=== PATIENT | female | born 1945 | race Caucasian/White ===

== ENCOUNTER 2017-04-23 11:16 | Emergency (ER) | payer MEDICARE, BC ==
[~2017-04-23] VITALS: Ht 160 cm; Wt 74.8 kg
--- NOTE | ~2017-04-23 | CR72 ---
[facility] A Service of [facility] & [facility] RADIOLOGY TEXT RESULTS PATIENT: HARJINDER SIMON LOCATION: [facility] : 43 UNIT #: [id number] AGE: [address]: Mayito Watlon MD SEX: F ORDER DR: [id number] [facility] [address] [place], [place] [address] [id number] E MR#: [id number] Acc #: [id number] NAME: HARJINDER SIMON : 1945 SEX: F STUDY DATE/TIME: 04/23/2017 11:54 UNIT: [facility] ROOM: STUDY DESCRIPTION: CR Chest Single View Portable Attending Physician: Mayito Walton M.D. Ordering Physician: Mayito Walton M.D. Primary Care Physician: Yasir Bernard M.D. MEDICAL IMAGING REPORT This report is preliminary unless electronic signature is present EXAM AP portable chest. Date: 04/23/2017. HISTORY 71-year-old female with shortness breath and weakness for 1 day. COMPARISON AP portable chest 01/30/2015. FINDINGS There is minimal scarring or atelectasis in the left base. No dense lung consolidations are seen. Normal heart size. No pleural effusion or pneumothorax. No acute osseous abnormality. IMPRESSION Very mild left basilar atelectasis or scarring. No consolidation. Dictated by... Cesilia Arellano M.D. THIS IS AN ELECTRONICALLY VERIFIED REPORT Cesilia Arellano M.D. at 04/24/2017 8:31 AM LLH/aript TD: 04/23/2017 16:47 JOB #: [id number] MEDICAL IMAGING REPORT Page 1 of 1 COPY
--- NOTE | ~2017-04-23 | CT71 ---
[facility] A Service of [facility] & [facility] RADIOLOGY TEXT RESULTS PATIENT: HARJINDER SIMON LOCATION: [facility] : 43 UNIT #: [id number] AGE: [address]: Mayito Walton MD SEX: F ORDER DR: [id number] [facility] [address] [place], [place] [address] [id number] E MR#: [id number] Acc #: [id number] NAME: HARJINDER SIMON : 1945 SEX: F STUDY DATE/TIME: 04/23/2017 13:06 UNIT: [facility] ROOM: STUDY DESCRIPTION: CT Head Wo Contrast Attending Physician: Mayito Walton M.D. Ordering Physician: Mayito Walton M.D. Primary Care Physician: Yasir Bernard M.D. MEDICAL IMAGING REPORT This report is preliminary unless electronic signature is present EXAM CT head, 04/23/2017 HISTORY Dizziness, weakness since [address] head performed skull base through vertex without intravenous contrast. Comparison 08/01/2016. This CT exam was performed with one or more of the following radiation dose reduction techniques: Automatic exposure control, adjustment of mA and/or kV according to patient size, and iterative reconstruction. The brainstem is unremarkable. The cerebellum and cerebral hemispheres show overall preservation of chavez matter-white matter differentiation. No hemorrhage. There is no clear indication of acute cortical ischemia. Extensive areas of subcortical and periventricular and deep white matter tract hypodensity not significantly changed from prior study and most in keeping with sequelae of chronic small vessel ischemic change. The midline structures are nondisplaced. No acute basal ganglia abnormality. The ventricles, cisterns and sulci are mildly enlarged, consistent with mild generalized atrophy. There are cavernous carotid arterial calcifications. No intra- or extraaxial mass effect or abnormal intracranial fluid collection. Visualized intraorbital soft tissues are unremarkable. Mucosal thickening in the bilateral sphenoid sinuses. Probable small air-fluid level in the right sphenoid sinus. Mucosal thickening and air-fluid level in the left maxillary sinus. Findings suggest combination of chronic and acute sinusitis in these locations. No fracture. IMPRESSION 1. No acute abnormalities seen in the brain. If the patient has ongoing neurologic symptoms, consider followup imaging. Chronic STS. [facility] A Service of [facility] & [facility] RADIOLOGY TEXT RESULTS PATIENT: HARJINDER SIMON LOCATION: [facility] : 43 UNIT #: [id number] AGE: [address]: Mayito Walton MD SEX: F ORDER DR: changes include: Mild generalized atrophy, periventricular, subcortical and deep white matter tract probable sequelae of chronic microvascular ischemia, vascular calcifications. 2. Mucosal thickening and air-fluid levels suggested in right sphenoid and left maxillary sinuses suggesting combination of acute and chronic sinusitis at these locations. Dictated by... Mauricio Kimball M.D. THIS IS AN ELECTRONICALLY VERIFIED REPORT Mauricio Kimball M.D. at 04/24/2017 10:44 PM Sobeida TD: 04/23/2017 20:04 JOB #: [id number] MEDICAL IMAGING REPORT Page 1 of 1 COPY
--- NOTE | ~2017-04-23 | EKG ---
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
[~2017-04-23 11:16] MED LIST: APAP325 MG PO; CLOPIDOGREL75 MG PO; COLESTID PO; CYTOMEL5 MCG PO; DULOXETINE HCL60 MG PO; FLAGYL PO; FOSAMAX70 MG PO; GABAPENTIN300 MG PO; HYDRALAZINE HCL25 MG PO; HYDRALAZINE HCL50 MG PO; LABETALOL HCL200 MG PO; LIOTHYRONINE S50 MCG PO; LIOTHYRONINE SO5 MC1 PO; LIOTHYRONINE SO5 MCG PO; LIPITOR40 MG PO; NEURONTIN600 MG PO; OCEAN45 ML; PRINCIPEN500 M1 PO; PROTONIX PO; QUDEXY XR100 MG PO; REQUIP0.25 MG PO; REQUIP4 MG PO; TOPROL XL 50 MG50 MG PO; TRAMADOL HCL50 M1 PO; VITAMIN D1000 UNI1 PO; ZYLOPRIM100 MG PO
[2017-04-23 12:01] LABS: BASOPHIL# 0.1 X10e3 (0-0.3); BASOPHIL% 0.4 % (0-2.5); EOSINOPHIL# 0.2 X10e3 (0-0.7); EOSINOPHIL% 1.4 % (0.0-7.0); HEMATOCRIT 41.5 % (35.0-45.0); HEMOGLOBIN 13.5 gm/dL (12.0-16.0); LYMPHOCYTE# 3.3 X10e3 (1.0-3.5); LYMPHOCYTE% 29.2 % (17.0-45.0); MEAN CELL VOLUME 94.6 FL (83-96); MEAN CORPUSCULAR HEMOGLOBIN 30.9 PG (28-34); MEAN CORPUSCULAR HGB CONC 32.6 g/dL (30-36); MONOCYTE# 0.7 X10e3 (0-1.0); NEUTROPHIL# 7.2 X10e3 (1.5-7.1); PLATELET COUNT 273 X10e3 (140-420); RED BLOOD COUNT 4.39 X10e (3.90-5.30); RED CELL DISTRIBUTION WIDTH 13.7 % (11.0-15.5); WHITE BLOOD COUNT 11.5 X10e3 (4.0-10.5)
[2017-04-23 12:03] LABS: DIFF IND NO
[2017-04-23 12:12] LABS: POC - CKMB 2.7 ng/mL (0.0-7.9); POC - TROPONIN <0.05 ng/mL (<=0.05)
[2017-04-23 12:35] LABS: BILIRUBIN, DIRECT 0.1 mg/dL (0.0-0.2); BILIRUBIN,INDIRECT 0.8 mg/dL (0.0-0.9); BILIRUBIN,TOTAL 0.9 mg/dL (0.2-2.0); BUN/CREATININE RATIO 15.62; CALCIUM SERUM 9.3 mg/dL (8.4-10.2); CREATININE SERUM 1.6 mg/dL (0.6-1.4); GLOM FILT RATE Estimated 31.6 mL/min (>60); PROTEIN TOTAL SERUM 7.6 g/dL (6.0-8.3)
[2017-04-23 14:12] LABS: URINE SOURCE CLEAN CATCH
[2017-04-23 14:17] LABS: URINE APPEARANCE CLEAR; URINE BILIRUBIN NEG (NEG); URINE BLOOD TRACE (NEG); URINE COLOR YELLOW; URINE GLUCOSE NEG (NEG); URINE KETONE NEG (NEG); URINE LEUKOCYTE ESTERASE 1+ (NEG); URINE NITRATE NEG (NEG); URINE PROTEIN NEG (NEG); URINE SPECIFIC GRAVITY 1.013 (1.003-1.035); URINE UROBILINOGEN 0.2 MG/DL (NEG)
[2017-04-23 14:19] LABS: CULTURE INDICATED? YES; U HYALINE CASTS AUWI 0-2 /[LPF]; URINE BACTERIA AUWI 4+ (NEGATIVE); URINE SQUAMOUS EPITHELIAL CELL NONE SEEN /[HPF]
== END 2017-04-23 15:20 | disposition home or self-care (01) ==
LOC: CED 11:16
PROVIDERS: Emergency Medicine
DX: N30.00 Acute cystitis without hematuria (principal); R42 Dizziness and giddiness; R53.1 Weakness; R53.83 Other fatigue; E87.6 Hypokalemia; I12.9 Hypertensive chronic kidney disease with stage 1 through stage 4 chronic kidney disease, or unspecified chronic kidney disease; N18.9 Chronic kidney disease, unspecified; E03.9 Hypothyroidism, unspecified; X58.XXXA Exposure to other specified factors, initial encounter
CPT/HCPCS: 36415; 51701; 70450; 71010; 80048; 80076; 81003; 82553; 82947; 84443; 84484; 85025; 87086; 87186; 93005; 96360; 99285

== ENCOUNTER → 2017-05-25 | Outpatient (CLI) | payer MEDICARE ==
--- NOTE | ~2017-05-25 | MR113 ---
[facility] A Service of [facility] & [facility] RADIOLOGY TEXT RESULTS PATIENT: RENETTA SIMON LOCATION: [facility] : 41 UNIT #: [id number] AGE: [address]: Yasir Bernard MD SEX: F ORDER DR: [id number] [facility] [address] [place], [place] [address] [id number] O MR#: [id number] Acc #: [id number] NAME: RENETTA SIMON : 1945 SEX: F STUDY DATE/TIME: 05/25/2017 7:16 UNIT: [facility] ROOM: STUDY DESCRIPTION: MR Lumbar Wo Contrast Attending Physician: Yasir Bernard M.D. Referring Physician: Yasir Bernard M.D. Ordering Physician: Yasir Bernard M.D. Primary Care Physician: Yasir Bernard M.D. MRI CENTER REPORT This report is preliminary unless electronic signature is present. EXAM MRI of the lumbar spine without contrast dated 05/25/2017. COMPARISON None. HISTORY Low back pain and bilateral leg pain for a year. Pain extends all the way down to the feet. It has been worsening for several months. FINDINGS Multisequence, multiplanar imaging of the lumbar spine was obtained without contrast. 5 mm retrolisthesis of L5 is seen with respect to L4. There are no pars defects. Fatty signal 1.1-cm lesion is noted within L4 vertebral body, probably a nonaggressive benign lesion like hemangioma. Fatty marrow conversion is noted at multiple levels. Degenerative disc disease is noted throughout the visualized thoracolumbar spine. Conus terminates at T12-L1. Signal of conus and cauda equina are within normal limits. Pre- and paravertebral soft tissues do not demonstrate any significant abnormality. Increased T2 signal lesion is noted within the lateral aspect of the mid-right kidney measuring 2.8 x 2.3 cm. It was also noted in the CT abdomen from 10/30/2014 and is probably a simple cyst. L1-2: Disc-osteophyte complex with innp-bu-lokgndqr bilateral facet hypertrophic changes. Borderline size to mild canal stenosis is seen with mild left lateral recess narrowing. Mild bilateral neural foraminal narrowing is seen. L2-3: Disc-osteophyte complex, which is asymmetrically prominent in bilateral foraminal to extraforaminal regions. Ahry-bw-faiytbsg bilateral facet changes are noted with moderate canal stenosis. Mild inferior bilateral neural foraminal encroachment is seen. [facility] A Service of [facility] RADIOLOGY TEXT RESULTS PATIENT: RENETTA SIMON LOCATION: [facility] : 41 UNIT #: [id number] AGE: [address]: Yasir Bernard MD SEX: F ORDER DR: L3-4: Concentric disc bulge with superimposed right foraminal to extraforaminal broad-based protrusion and mild inferior right neural foraminal narrowing. Minimal bilateral facet changes are noted with borderline size to mild canal stenosis. L4-5: Moderate disc-osteophyte complex with severe bilateral facet hypertrophic changes and ligamentum flavum thickening. Severe canal stenosis is seen with yfqrtunm-qr-hmoizs bilateral lateral recess stenosis, gsvtxrgh-wq-fhzdph left and ekwi-zu-uenieevn right neural foraminal narrowing. L5-S1: Disc-osteophyte complex with moderate right and mild left facet hypertrophic change. There is sbih-sj-bcfijahp right lateral recess stenosis with eswe-jt-nhkmgnet bilateral neural foraminal narrowing, worse on the right. IMPRESSION 1. Degenerative changes are noted at multiple levels as described above, worse at L4-5 with canal stenosis, bilateral lateral recess stenosis and neural foraminal narrowing. There is also mild retrolisthesis (5 mm) of L5 with respect to L4. Nonaggressive fatty signal lesion is noted in L4 vertebral body, probably a hemangioma given its fatty signal characteristics. 2. Conus and cauda equina do not demonstrate any significant abnormality. Dictated by... Emigdio Bettencourt M.D. THIS IS AN ELECTRONICALLY VERIFIED REPORT Emigdio Bettencourt M.D. at 05/29/2017 3:18 PM CPR/psc TD: 05/25/2017 16:57 JOB #: [id number] MRI CENTER REPORT Page 1 of 1 COPY
== END | disposition home or self-care (01) ==
LOC: CMRI 05-18 07:00
DX: M47.26 Other spondylosis with radiculopathy, lumbar region (principal); M48.06 Spinal stenosis, lumbar region; M43.16 Spondylolisthesis, lumbar region
CPT/HCPCS: 72148